=== PATIENT | male | born 1965 | race African-American/Black ===

== ENCOUNTER 2018-10-09 15:21 | Inpatient (IN) | payer OTHER ==
[2018-10-09] MEDS ORDERED: ASPIRIN 81 MG TABLET, CHEWABLE PO ONE (17:37)
--- NOTE | 2018-10-09 17:47 | ER Document Report ---
ED Medical Screen (RME) - General Chief Complaint: Chest Pain Stated Complaint: CHEST PAIN, SHORTNESS OF BREATH Time Seen by Provider: 10/09/18 17:37 Mode of Arrival: Ambulatory Information source: Patient Notes: Patient is a 53-year-old male with past medical history of hypertension and myocardial infarction x1 who presents with chest pain onset 1 hour prior to arrival. He states he has associated shortness of breath denies any radiation of the pain, denies any nausea or vomiting. Patient denies any history of atrial fibrillation. EKG at check-in shows atrial fibrillation. Upgraded to JOCELIN 2 and called charge nurse for bed. Exam: Heart sounds irregular. Lungs sounds clear to auscultation bilaterally. I have greeted and performed a rapid initial assessment of this patient. A comprehensive ED assessment and evaluation of the patient, analysis of test results and completion of the medical decision making process will be conducted by additional ED providers. Dictation of this chart was performed using voice recognition software; therefore, there may be some unintended grammatical errors. TRAVEL OUTSIDE OF THE [place] IN LAST 30 DAYS: No - Related Data Allergies/Adverse Reactions: No Known Allergies Allergy (Verified 12/01/12 13:50) Past Medical History - Past Medical History Cardiac Medical History: Reports: Hx Coronary Artery Disease, Hx Heart Attack - Immunizations Hx Diphtheria, Pertussis, Tetanus Vaccination: Yes Physical Exam - Vital signs Vitals: Temp Pulse Resp BP Pulse Ox 98.3 F 60 22 H 148/96 H 96 10/09/18 15:34 10/09/18 15:34 10/09/18 15:34 10/09/18 15:34 10/09/18 15:34 Course - Vital Signs Vital signs: Temp Pulse Resp BP Pulse Ox 98.3 F 60 22 H 148/96 H 96 10/09/18 15:34 10/09/18 15:34 10/09/18 15:34 10/09/18 15:34 10/09/18 15:34 Doctor's Discharge - Discharge Referrals: VIRGEN FERRER MD [Primary Care Provider] - Follow up as needed
[2018-10-09 18:08] LABS: ABSOLUTE EOSINOPHILS # (AUTO) 0.1 10^3/uL (0.0-0.6); ABSOLUTE LYMPHOCYTES (AUTO) 1.9 10^3/uL (0.5-4.7); ABSOLUTE MONOCYTES (AUTO) 0.7 10^3/uL (0.1-1.4); BASOPHILS % (AUTO) 0.5 % (0-2); EOSINOPHILS % (AUTO) 2.6 % (0-6); LYMPHOCYTES % (AUTO) 32.5 % (13-45); MEAN CORPUSCULAR HEMOGLOBIN 29.9 pg (27.0-33.4); MEAN CORPUSCULAR HGB CONC 33.4 g/dL (32.0-36.0); MEAN CORPUSCULAR VOLUME 90 fl (80-97); MONOCYTES % (AUTO) 12.4 % (3-13); PLATELET COUNT 227 10^3/uL (150-450); RED BLOOD COUNT 5.36 10^6/uL (4.35-5.55); RED CELL DISTRIBUTION WIDTH 14.5 % (11.5-14.0); TOTAL CELLS COUNTED % (AUTO) 100 %; WHITE BLOOD COUNT 5.7 10^3/uL (4.0-10.5)
--- NOTE | 2018-10-09 18:12 | RADIOLOGY REPORT (SQ) ---
EXAM DESCRIPTION: CHEST SINGLE VIEW COMPLETED DATE/TIME: 10/09/2018 5:59 pm REASON FOR STUDY: chest pain COMPARISON: November 2012 EXAM PARAMETERS: NUMBER OF VIEWS: One view. TECHNIQUE: Single frontal radiographic view of the chest acquired. RADIATION DOSE: NA LIMITATIONS: None. FINDINGS: LUNGS AND PLEURA: No opacities, masses or pneumothorax. No pleural effusion. MEDIASTINUM AND HILAR STRUCTURES: No masses. Contour normal. HEART AND VASCULAR STRUCTURES: The configuration of the heart mediastinal structures is unchanged. BONES: No acute findings. HARDWARE: None in the chest. OTHER: No other significant finding. IMPRESSION: NO ACUTE RADIOGRAPHIC FINDING IN THE CHEST. TECHNICAL DOCUMENTATION: JOB ID: [id number] [employer]- All Rights Reserved Reading location - IP/workstation name: [email or web address]
[2018-10-09 18:19] LABS: ALANINE AMINOTRANSFERASE 49 U/L (21-72); ALBUMIN 4.5 g/dL (3.5-5.0); ALKALINE PHOSPHATASE 93 U/L (38-126); ANION GAP 8 (5-19); ASPARTATE AMINO TRANSFERASE 32 U/L (17-59); BILIRUBIN,DIRECT 0.3 mg/dL (0.0-0.4); BILIRUBIN,TOTAL 0.5 mg/dL (0.2-1.3); BLOOD UREA NITROGEN 14 mg/dL (7-20); CALCIUM 9.8 mg/dL (8.4-10.2); CARBON DIOXIDE 30 mmol/L (22-30); CHLORIDE 108 mmol/L (98-107); CREATINE KINASE 760 U/L (55-170); GLUCOSE 86 mg/dL (75-110); POTASSIUM 4.3 mmol/L (3.6-5.0); SODIUM 146.3 mmol/L (137-145); TOTAL PROTEIN 7.2 g/dL (6.3-8.2)
[2018-10-09] MEDS ORDERED: DILTIAZEM HCL/D5W 125 MG/125 ML RTUINJ IV PRN ×2 (18:29→20:22)
[2018-10-09] MEDS ORDERED: DILTIAZEM HCL INJ 25 MG/5 ML VIAL IV ONE (18:29)
[2018-10-09 18:31] LABS: CREATINE KINASE MB 5.03 ng/mL (<4.55)
--- NOTE | 2018-10-09 18:31 | ER Document Report ---
ED Cardiac - General Chief Complaint: Chest Pain Stated Complaint: CHEST PAIN, SHORTNESS OF BREATH Time Seen by Provider: 10/09/18 17:37 Mode of Arrival: Ambulatory Notes: 53-year-old male to the emergency department chief complaint of chest pain. Patient states that symptoms began earlier today. [place] palpitations and squeezing feeling in his chest. Has had this before. Has never been told that he has atrial fibrillation. Present here in the emergency department. Initial EKG showed atrial fibrillation. Patient still having palpitations and tightness in his chest at this time. Patient incidentally does have a prior history of heart attack. Had an Angiogram done while he was in [place] and was told he was having a heart attack. Does not have a stent. Does not smoke. Does not drink. Takes his blood pressure medication regularly. TRAVEL OUTSIDE OF THE [place] IN LAST 30 DAYS: No - HPI Patient complains to provider of: Chest pain, Chest tightness, Palpitations, Shortness of breath Was the onset of pain: Sudden Chest pain location: Substernal Quality of pain: Constant Severity now: Moderate Severity at worst: Moderate Pain level currently: 2 Cardiac risk factors: Hypertension, Hx [place] Positive cardiac history: Yes Associated symptoms: None - Related Data Allergies/Adverse Reactions: No Known Allergies Allergy (Verified 12/01/12 13:50) Past Medical History - General Information source: Patient - Social History Smoking Status: Never Smoker Frequency of alcohol use: Daily beers Drug Abuse: None Lives with: Family Family History: Hypertension Patient has suicidal ideation: No Patient has homicidal ideation: No - Past Medical History Cardiac Medical History: Reports: Hx Coronary Artery Disease, Hx Heart Attack, Hx Hypercholesterolemia, Hx Hypertension Renal/ Medical History: Denies: Hx Peritoneal Dialysis Past Surgical History: Reports: Hx Appendectomy, Hx Cardiac Catheterization - 2004 - Immunizations Hx Diphtheria, Pertussis, Tetanus Vaccination: Yes Review of Systems - Review of Systems Notes: Constitutional: denies: Chills, Diaphoresis, Fever, Malaise, Weakness EENT: denies: Eye discharge, Blurred vision, Tearing, Double vision, Nose congestion, Nose discharge, Throat swelling, Mouth pain Cardiovascular: Patient complaining of tightness in the chest, palpitations and mild shortness of breath. Respiratory: denies: Cough, Hurts to breathe, Wheezing,. Positive for mild shortness of breath Gastrointestinal: denies: Abdominal pain, Diarrhea, Nausea, Vomiting, Black stools, bright red blood in stool Genitourinary: denies: Burning, Dysuria, Discharge, Frequency, Flank pain, Hematuria Musculoskeletal: denies: Joint pain, Joint swelling, Muscle pain, Muscle stiffness, back pain Hematologic/Lymphatic: denies: Anemia, Easy bleeding, Easy bruising, Blood clots Neurological/Psychological: denies: Confusion, Dementia, Depression, Loss of consciousness Skin: No lesions, no masses, no skin breakdown, no abscesses Physical Exam - Vital signs Vitals: Temp Pulse Resp BP Pulse Ox 98.3 F 60 22 H 148/96 H 96 10/09/18 15:34 10/09/18 15:34 10/09/18 15:34 10/09/18 15:34 10/09/18 15:34 Interpretation: Tachycardic - General General appearance: Appears well, Alert - HEENT Head: Normocephalic, Atraumatic Eyes: Normal Pupils: PERRL - Respiratory Respiratory status: No respiratory distress Chest status: Nontender Breath sounds: Normal Chest palpation: Normal - Cardiovascular Rhythm: Irregularly irregular, Tachycardia Heart sounds: Normal auscultation Murmur: No - Abdominal Inspection: Normal Distension: No distension Bowel sounds: Normal Tenderness: Nontender Organomegaly: No organomegaly - Back Back: Normal, Nontender - Extremities General upper extremity: Normal inspection, Nontender, Normal color, Normal ROM , Normal temperature General lower extremity: Normal inspection, Nontender, Normal color, Normal ROM , Normal temperature, Normal weight bearing. No: Benitez's sign - Neurological Neuro grossly intact: Yes Cognition: Normal Orientation: AAOx4 Casimiro Coma Scale Eye Opening: Spontaneous Casimiro Coma Scale Verbal: Oriented Casimiro Coma Scale Motor: Obeys Commands Casimiro Coma Scale Total: 15 Speech: Normal Motor strength normal: LUE, RUE, LLE, RLE Sensory: Normal - Psychological Associated symptoms: Normal affect, Normal mood - Skin Skin Temperature: Warm Skin Moisture: Dry Skin Color: Normal Course - Re-evaluation Re-evalutation: 10/09/18 19:49 Patient has atrial fibrillation with rapid ventricular response. Diltiazem bolus and drip started. Labs are fairly unremarkable. This is new onset A. fib with RVR. Will need to be admitted. Consulted with hospitalist. Will admit at this time. 10/09/18 19:50 Laboratory 10/09/18 10/09/18 10/09/18 17:50 17:50 17:50 WBC 5.7 RBC 5.36 Hgb 16.0 Hct 48.0 MCV 90 MCH 29.9 MCHC 33.4 RDW 14.5 H Plt Count 227 Seg Neutrophils % 52.0 Lymphocytes % 32.5 Monocytes % 12.4 Eosinophils % 2.6 Basophils % 0.5 Absolute Neutrophils 3.0 Absolute Lymphocytes 1.9 Absolute Monocytes 0.7 Absolute Eosinophils 0.1 Absolute Basophils 0.0 PT INR APTT Sodium 146.3 H Potassium 4.3 Chloride 108 H Carbon Dioxide 30 Anion Gap 8 BUN 14 Creatinine 1.07 Est GFR ( Amer) > 60 Est GFR (Non-Af Amer) > 60 Glucose 86 Calcium 9.8 Total Bilirubin 0.5 Direct Bilirubin 0.3 Neonat Total Bilirubin Not Reportable Neonat Direct Bilirubin Not Reportable Neonat Indirect Bili Not Reportable AST 32 ALT 49 Alkaline Phosphatase 93 Creatine Kinase 760 H CK-MB (CK-2) 5.03 H Troponin I < 0.012 Total Protein 7.2 Albumin 4.5 10/09/18 17:50 WBC RBC Hgb Hct MCV MCH MCHC RDW Plt Count Seg Neutrophils % Lymphocytes % Monocytes % Eosinophils % Basophils % Absolute Neutrophils Absolute Lymphocytes Absolute Monocytes Absolute Eosinophils Absolute Basophils PT 12.5 INR 0.89 APTT 28.2 Sodium Potassium Chloride Carbon Dioxide Anion Gap BUN Creatinine Est GFR ( Amer) Est GFR (Non-Af Amer) Glucose Calcium Total Bilirubin Direct Bilirubin Neonat Total Bilirubin Neonat Direct Bilirubin Neonat Indirect Bili AST ALT Alkaline Phosphatase Creatine Kinase CK-MB (CK-2) Troponin I Total Protein Albumin Chest X-Ray 10/09/18 17:38 IMPRESSION: NO ACUTE RADIOGRAPHIC FINDING IN THE CHEST. - Vital Signs Vital signs: Temp Pulse Resp BP Pulse Ox 98.3 F 60 24 H 129/76 H 97 10/09/18 15:34 10/09/18 15:34 10/09/18 19:02 10/09/18 19:02 10/09/18 19:02 - Laboratory Result Diagrams: 10/09/18 17:50 10/09/18 17:50 Laboratory results interpreted by me: 10/09/18 10/09/18 10/09/18 17:50 17:50 17:50 RDW 14.5 H Sodium 146.3 H Chloride 108 H Creatine Kinase 760 H CK-MB (CK-2) 5.03 H Critical Care Note - Critical Care Note Total time excluding time spent on procedures (mins): 35 Comments: Tachycardia, A. fib with RVR, medication administration for control of heart rate. Discharge - Discharge Clinical Impression: Atrial fibrillation with RVR Condition: Good Disposition: ADMITTED INPATIENT Admitting Provider: [facility] Admitted: Telemetry
[2018-10-09 18:35] LABS: TROPONIN I < 0.012 ng/mL
--- NOTE | 2018-10-09 18:53 | EKG REPORT ---
SEVERITY:- ABNORMAL ECG - ATRIAL FIBRILLATION, V-RATE 77-167 VENTRICULAR TRIGEMINY VS SUPRVENTRICULAR ABBERENCY LVH WITH SECONDARY REPOLARIZATION ABNORMALITY INFERIOR INFARCT, OLD : Confirmed by: Syed Tenorio MD 09-Oct-2018 18:52:55
[2018-10-09 18:57] LABS: INTERNATIONAL RATION (INR) 0.89; PROTHROMBIN TIME 12.5 SEC (11.4-15.4)
[2018-10-09 18:58] LABS: PARTIAL THROMBOPLASTIN TIME 28.2 SEC (23.5-35.8)
[2018-10-09] MEDS ORDERED: ONDANSETRON 4 MG TAB.RAPDIS PO PRN (20:12)
[2018-10-09] MEDS ORDERED: MAG HYDROX/AL HYDROX/SIMETH SUSP 30 ML UDCUP PO PRN (20:12)
[2018-10-09] MEDS ORDERED: MAGNESIUM HYDROXIDE SUSP 30 ML UDCUP PO PRN (20:12)
[2018-10-09] MEDS ORDERED: ONDANSETRON HCL INJ/PF 4 MG/2 ML SDV IV PRN (20:12)
[2018-10-09] MEDS ORDERED: MORPHINE SULFATE 10 MG/ML INJ IV PRN ×3 (20:22)
[2018-10-09] MEDS ORDERED: ACETAMINOPHEN 325 MG TABLET PO PRN (20:22)
[2018-10-09] MEDS ORDERED: ACETAMINOPHEN 650 MG SUPP.RECT PR PRN (20:22)
--- NOTE | 2018-10-09 20:46 | PDOC H&P ---
History of Present Illness Admission Date/PCP: 10/09/18 19:36 RICHARD LANCASTER MD Patient complains of: Chest pain with palpitations History of Present Illness: JESSICA MCDONALD SR is a 53 year old male who presented to the emergency room with the sudden onset of moderately severe, nonradiating, substernal squeezing chest pain at 1:30 PM on the day of admission. He admits that the chest pain has been present since its onset and has remained essentially unchanged. He further admits similar prior episodes of chest pain which usually pass after a few minutes without intervention. He also admits similar prior chest pain when he had a myocardial infarction several years ago. The chest pain was accompanied by a fluttering sensation in his chest which he had also noted on several prior occasions when he had pain. The fluttering sensation has been somewhat variable in intensity since onset. When it becomes more intense he has a sense of on the ease and general malaise which improves when the intensity of the fluttering decreases. Because the symptoms were not resolving he presented to the emergency room for further evaluation. In the ER he was found to have atrial fibrillation with a rapid ventricular response and negative cardiac enzymes as well as a EKG negative for changes consistent with myocardial ischemia or injury. He was initially treated with a diltiazem bolus injection followed by an intravenous infusion which controlled his heart rate and improved his sense of well-being. He was subsequently admitted to the [facility] for further evaluation and treatment. Past Medical History Cardiac Medical History: Reports: Coronary Artery Disease, Myocardial Infarction , Hyperlipidema, Hypertension Denies: Atrial Fibrillation, DVT, Pulmonary Embolism Pulmonary Medical History: Denies: Asthma, Chronic Obstructive Pulmonary Disease (COPD) EENT Medical History: Reports: None Neurological Medical History: Denies: Hemorrhagic CVA, Ischemic CVA, Seizures Endocrine Medical History: Reports: Obesity Denies: Diabetes Mellitus Type 1, Diabetes Mellitus Type 2, Hyperthyroidism, Hypothyroidism Renal/ Medical History: Denies: Chronic Kidney Disease, Nephrolithiasis Malignancy Medical History: Reports: None GI Medical History: Denies: Cirrhosis, Hepatitis Musculoskeltal Medical History: Reports: Other - Grade 3 ankle sprain on the right with chronic debility Denies: Arthritis, Gout Skin Medical History: Denies: Eczema, Psoriasis Psychiatric Medical History: Denies: Alcohol Dependency, Substance Abuse, Tobacco Dependency Past Surgical History Past Surgical History: Reports: Appendectomy, Cardiac Catheterization - 2004, Orthopedic Surgery - Grade 3 ankle sprain on the right with chronic debility. Denies: Coronary Stent Social History Information Source: Patient Lives with: Family Smoking Status: Never Smoker Frequency of Alcohol Use: Social Hx Recreational Drug Use: No Drugs: None Hx Prescription Drug Abuse: No - Advance Directive Resuscitation Status: Full Code Surrogate healthcare decision maker:: Spouse Family History Family History: Hypertension Parental Family History Reviewed: Yes Children Family History Reviewed: No Sibling(s) Family History Reviewed.: Yes Medication/Allergy Home Medications: Amlodipine Besylate/Benazepril [Lotrel 10-20 Mg Capsule] 1 each PO DAILY Losartan Potassium [Cozaar 50 Mg Tablet] 50 mg PO DAILY 12/01/12 Metoprolol Succinate [Toprol XL 25 mg Tablet] 25 mg PO DAILY 12/01/12 Sildenafil Citrate [Viagra] 25 mg PO PRN PRN 12/01/12 Atorvastatin Calcium [Lipitor 20 mg Tablet] 20 mg PO QHS 10/09/18 Allergies/Adverse Reactions: No Known Allergies Allergy (Verified 12/01/12 13:50) Review of Systems Constitutional: ABSENT: chills, fever(s) Eyes: ABSENT: visual disturbances, other - Ocular pain Ears: ABSENT: hearing changes, other - Ear pain Nose, Mouth, and Throat: ABSENT: mouth pain, sore throat Cardiovascular: PRESENT: as per HPI, chest pain, palpitations. ABSENT: dyspnea on exertion, edema, orthropnea Gastrointestinal: ABSENT: abdominal pain, constipation, diarrhea, nausea, vomiting Genitourinary: ABSENT: dysuria, hematuria Musculoskeletal: ABSENT: deformity, joint swelling Integumentary: ABSENT: pruritus, [place] [id number] Neurological: ABSENT: confusion, convulsions, memory loss, syncope Psychiatric: ABSENT: anxiety, depression Endocrine: ABSENT: cold intolerance, heat intolerance Hematologic/Lymphatic: ABSENT: easy bleeding, easy bruising Physical Exam Vital Signs: Temp Pulse Resp BP Pulse Ox 98.3 F 60 24 H 129/76 H 97 10/09/18 15:34 10/09/18 15:34 10/09/18 19:02 10/09/18 19:02 10/09/18 19:02 General appearance: PRESENT: no acute distress, cooperative, obese Head exam: PRESENT: atraumatic, normocephalic Eye exam: PRESENT: EOMI. ABSENT: scleral icterus Ear exam: PRESENT: normal external ear exam. ABSENT: bleeding, drainage Mouth exam: PRESENT: dry mucosa, neck supple Neck exam: ABSENT: JVD, thyromegaly, tracheal deviation Respiratory exam: PRESENT: clear to auscultation berry, symmetrical, unlabored Cardiovascular exam: PRESENT: irregular rhythm - Irregularly irregular rate and rhythm, tachycardia - 112. ABSENT: clicks, diastolic murmur, gallop, rubs, systolic murmur Pulses: PRESENT: normal radial pulses, normal dorsalis pedis pul GI/Abdominal exam: PRESENT: normal bowel sounds, soft. ABSENT: tenderness Rectal exam: PRESENT: deferred Extremities exam: PRESENT: +1 edema - Right lower extremity status post grade 3 ankle sprain many years ago. ABSENT: joint swelling Musculoskeletal exam: ABSENT: dislocation, tenderness Neurological exam: PRESENT: alert, oriented to person, oriented to place, oriented to time, oriented to situation, CN II-XII grossly intact. ABSENT: motor sensory deficit Psychiatric exam: PRESENT: appropriate affect, normal mood Skin exam: PRESENT: dry, intact, warm. ABSENT: jaundice, rash, urticaria Results Impressions: Chest X-Ray 10/09/18 17:38 IMPRESSION: NO ACUTE RADIOGRAPHIC FINDING IN THE CHEST. Assessment & Plan - Diagnosis (1) Atrial fibrillation with RVR Is this a current diagnosis for this admission?: Yes Plan: Patient will be converted from intravenous diltiazem to oral diltiazem. Serial cardiac enzymes and EKGs will be performed to rule out myocardial injury or ischemia. Further evaluation treatment will be determined pending results of initial evaluation and response to initial therapeutic interventions. (2) CAD (coronary artery disease), ione coronary artery Qualifiers: [place] vs. transplanted heart: ione heart Associated angina: with stable angina Qualified Code(s): I25.118 - Atherosclerotic heart disease of ione coronary artery with other forms of angina pectoris Is this a current diagnosis for this admission?: Yes Plan: Patient will be continued on his current medications during his hospital course. Further evaluation of his coronary artery status may be indicated either during this course if he continues to have chest pain or in the very near future as an outpatient. If patient has significant chest pain requiring analgesia he will receive morphine sulfate administered intravenously on a sliding scale basis for pain control. (3) HTN (hypertension) Qualifiers: Hypertension type: essential hypertension Qualified Code(s): I10 - Essential (primary) hypertension Is this a current diagnosis for this admission?: Yes Plan: Patient will be continued on his current antihypertensive regiment and the efficacy of this therapy will be evaluated with serial vital sign measurements. (4) Obesity (BMI 30.0-34.9) Is this a current diagnosis for this admission?: Yes Plan: A dietary consultation will be obtained to assist the patient in lifestyle changes that could assist him in weight loss and general improved health. - Time Time Spent: 50 to 70 Minutes Critical Time spent with patient: Less than 15 minutes Medications reviewed and adjusted accordingly: Yes Anticipated discharge: Home - Inpatient Certification Based on my medical assessment, after consideration of the patient's comorbidities, presenting symptoms, or acuity I expect that the services needed warrant INPATIENT care.: Yes I certify that my determination is in accordance with my understanding of Medicare's requirements for reasonable and necessary INPATIENT services [42 CFR 412.3e].: Yes Medical Necessity: Need Close Monitoring Due to Risk of Patient Decompensation, Need For Continuous Telemetry Monitoring, Risk of Complication if Not Cared For in Hospital
[2018-10-09] MEDS: HEPARIN SOD (PORCINE) 5,000 UNIT/ML 1 ML SYRINGE SUBCUT SCH (21:47)
[2018-10-09] MEDS: FAMOTIDINE 20 MG TABLET PO SCH (21:47)
[2018-10-09 21:50] LABS: CREATINE KINASE MB 4.14 ng/mL (<4.55)
[2018-10-09 21:54] LABS: TROPONIN I < 0.012 ng/mL
[2018-10-09] MEDS ORDERED: DILTIAZEM HCL 60 MG TABLET PO ONE (23:00)
[2018-10-09] MEDS ORDERED: ATORVASTATIN CALCIUM 40 MG TABLET PO ONE (23:00)
[2018-10-10 03:16] LABS: ABSOLUTE EOSINOPHILS # (AUTO) 0.2 10^3/uL (0.0-0.6); ABSOLUTE LYMPHOCYTES (AUTO) 2.2 10^3/uL (0.5-4.7); ABSOLUTE MONOCYTES (AUTO) 0.6 10^3/uL (0.1-1.4); ABSOLUTE NEUT (AUTO) 2.4 10^3/uL (1.7-8.2); BASOPHILS % (AUTO) 0.6 % (0-2); HEMATOCRIT 45.6 % (37.9-51.0); HEMOGLOBIN 15.3 g/dL (13.5-17.0); LYMPHOCYTES % (AUTO) 40.7 % (13-45); MEAN CORPUSCULAR HEMOGLOBIN 29.9 pg (27.0-33.4); MEAN CORPUSCULAR HGB CONC 33.6 g/dL (32.0-36.0); MEAN CORPUSCULAR VOLUME 89 fl (80-97); MONOCYTES % (AUTO) 11.2 % (3-13); PLATELET COUNT 205 10^3/uL (150-450); RED BLOOD COUNT 5.12 10^6/uL (4.35-5.55); RED CELL DISTRIBUTION WIDTH 14.8 % (11.5-14.0); SEGMENTED NEUTROPHILS % (AUTO) 44.5 % (42-78); TOTAL CELLS COUNTED % (AUTO) 100 %; WHITE BLOOD COUNT 5.4 10^3/uL (4.0-10.5)
[2018-10-10 03:33] LABS: ANION GAP 8 (5-19); BLOOD UREA NITROGEN 14 mg/dL (7-20); CALCIUM 9.1 mg/dL (8.4-10.2); CARBON DIOXIDE 22 mmol/L (22-30); CHLORIDE 112 mmol/L (98-107); CHOLESTEROL 226.56 mg/dL (0-200); CREATINE KINASE 604 U/L (55-170); GLUCOSE 112 mg/dL (75-110); POTASSIUM 4.1 mmol/L (3.6-5.0); SODIUM 141.5 mmol/L (137-145); TRIGLYCERIDES 236 mg/dL (<150)
[2018-10-10 03:42] LABS: CREATINE KINASE MB 3.47 ng/mL (<4.55); NT PRO BNP 243 pg/mL (5-900)
[2018-10-10 03:43] LABS: DIRECT LDL 168 mg/dL (<100)
[2018-10-10 03:48] LABS: FREE T3 4.51 pg/mL (2.77-5.27); FREE T4 (FREE THYROXINE) 1.08 ng/dL (0.78-2.19); TROPONIN I < 0.012 ng/mL; VLDL CHOLESTEROL 47.2 mg/dL (10-31)
[2018-10-10 04:02] LABS: THYROID STIMULATING HORMONE 2.4 uIU/mL (0.47-4.68)
[2018-10-10] MEDS: HEPARIN SOD (PORCINE) 5,000 UNIT/ML 1 ML SYRINGE SUBCUT SCH ×3 (06:18→22:16)
[2018-10-10] MEDS ORDERED: METOPROLOL SUCCINATE 25 MG TAB.SR.24H PO SCH (10:00)
[2018-10-10] MEDS ORDERED: SIMVASTATIN 40 MG TABLET PO SCH (10:00)
[2018-10-10] MEDS ORDERED: METOPROLOL SUCCINATE 50 MG TAB.SR.24H PO SCH (10:00)
[2018-10-10] MEDS: ASPIRIN 325 MG TABLET PO SCH (10:02)
[2018-10-10] MEDS: LOSARTAN POTASSIUM 50 MG TABLET PO SCH (10:02)
[2018-10-10] MEDS: DOCUSATE SODIUM 100 MG CAPSULE PO SCH ×3 (10:03→17:55)
[2018-10-10] MEDS: DILTIAZEM HCL 240 MG CAPSULE.CR PO SCH (10:03)
[2018-10-10] MEDS: FAMOTIDINE 20 MG TABLET PO SCH ×2 (10:03→22:16)
[2018-10-10 11:42] LABS: CREATINE KINASE MB 3.36 ng/mL (<4.55)
[2018-10-10 11:46] LABS: TROPONIN I < 0.012 ng/mL
--- NOTE | 2018-10-10 19:47 | PDOC PROGRESS REPORT ---
Subjective Progress Note for:: 10/10/18 Subjective:: This is 53 years old black male patient admitted for A. fib with RVR. Patient has history of hypertension and obesity. He has been managed with Cardizem drip. Currently the drip is discontinued and he is switched to p.o. Cardizem. Reason For Visit: CHEST TIGHTNESS WITH PALPITATIONS Physical Exam Vital Signs: Temp Pulse Resp BP Pulse Ox 98.3 F 62 16 114/77 97 10/10/18 17:13 10/10/18 17:13 10/10/18 17:13 10/10/18 17:13 10/10/18 17:13 Intake & Output 10/09/18 10/10/18 10/11/18 06:59 06:59 06:59 Intake Total 28 Balance 28 Weight 122.4 kg General appearance: PRESENT: no acute distress, well-developed, well-nourished Head exam: PRESENT: atraumatic, normocephalic Eye exam: PRESENT: conjunctiva pink, EOMI, PERRLA. ABSENT: scleral icterus Ear exam: PRESENT: normal external ear exam Mouth exam: PRESENT: moist, tongue midline Neck exam: ABSENT: carotid bruit, JVD, lymphadenopathy, thyromegaly Respiratory exam: PRESENT: clear to auscultation berry. ABSENT: rales, rhonchi, wheezes Cardiovascular exam: PRESENT: RRR. ABSENT: diastolic murmur, rubs, systolic murmur Pulses: PRESENT: normal dorsalis pedis pul Vascular exam: PRESENT: normal capillary refill GI/Abdominal exam: PRESENT: normal bowel sounds, soft. ABSENT: distended, guarding, mass, organolmegaly, rebound, tenderness Rectal exam: PRESENT: deferred Extremities exam: PRESENT: full ROM. ABSENT: calf tenderness, clubbing, pedal edema Neurological exam: PRESENT: alert, awake, oriented to person, oriented to place , oriented to time, oriented to situation, CN II-XII grossly intact. ABSENT: motor sensory deficit Psychiatric exam: PRESENT: appropriate affect, normal mood. ABSENT: homicidal ideation, suicidal ideation Skin exam: PRESENT: dry, intact, warm. ABSENT: cyanosis, rash Results Laboratory Results: 10/10/18 03:08 10/10/18 03:08 10/10/18 10/10/18 10/10/18 03:08 03:08 03:08 WBC 5.4 RBC 5.12 Hgb 15.3 Hct 45.6 MCV 89 MCH 29.9 MCHC 33.6 RDW 14.8 H Plt Count 205 Seg Neutrophils % 44.5 Lymphocytes % 40.7 Monocytes % 11.2 Eosinophils % 3.0 Basophils % 0.6 Absolute Neutrophils 2.4 Absolute Lymphocytes 2.2 Absolute Monocytes 0.6 Absolute Eosinophils 0.2 Absolute Basophils 0.0 Sodium 141.5 Potassium 4.1 Chloride 112 H Carbon Dioxide 22 Anion Gap 8 BUN 14 Creatinine 0.87 Est GFR ( Amer) > 60 Est GFR (Non-Af Amer) > 60 Glucose 112 H Calcium 9.1 Magnesium 2.2 Triglycerides 236 H Cholesterol 226.56 H LDL Cholesterol Direct 168 H VLDL Cholesterol 47.2 H HDL Cholesterol 42 TSH 2.40 Free T4 1.08 Free T3 pg/mL 4.51 10/09/18 10/09/18 10/10/18 21:13 21:13 03:08 Creatine Kinase 667 H CK-MB (CK-2) 4.14 3.47 Troponin I < 0.012 < 0.012 NT-Pro-B Natriuret Pep 243 10/10/18 10/10/18 10/10/18 03:08 10:48 10:48 Creatine Kinase 604 H 525 H CK-MB (CK-2) 3.36 Troponin I < 0.012 NT-Pro-B Natriuret Pep Impressions: Chest X-Ray 10/09/18 17:38 IMPRESSION: NO ACUTE RADIOGRAPHIC FINDING IN THE CHEST. Assessment & Plan - Diagnosis (1) Atrial fibrillation with RVR Is this a current diagnosis for this admission?: Yes Plan: Patient now reverted to sinus rhythm (2) HTN (hypertension) Qualifiers: Hypertension type: essential hypertension Qualified Code(s): I10 - Essential (primary) hypertension Is this a current diagnosis for this admission?: Yes Plan: Continue home medication (3) Obesity (BMI 30.0-34.9) Is this a current diagnosis for this admission?: Yes Plan: Patient advised to do lifestyle modification.
[2018-10-10] MEDS ORDERED: ATORVASTATIN CALCIUM 40 MG TABLET PO SCH (22:00)
[2018-10-11 03:24] VITALS: BP 125/69
[2018-10-11 06:53] LABS: ABSOLUTE EOSINOPHILS # (AUTO) 0.2 10^3/uL (0.0-0.6); ABSOLUTE LYMPHOCYTES (AUTO) 1.8 10^3/uL (0.5-4.7); ABSOLUTE MONOCYTES (AUTO) 0.6 10^3/uL (0.1-1.4); ABSOLUTE NEUT (AUTO) 2.7 10^3/uL (1.7-8.2); BASOPHILS % (AUTO) 0.5 % (0-2); EOSINOPHILS % (AUTO) 3.1 % (0-6); HEMATOCRIT 45.9 % (37.9-51.0); HEMOGLOBIN 15.3 g/dL (13.5-17.0); LYMPHOCYTES % (AUTO) 34.7 % (13-45); MEAN CORPUSCULAR HEMOGLOBIN 29.9 pg (27.0-33.4); MEAN CORPUSCULAR HGB CONC 33.4 g/dL (32.0-36.0); MEAN CORPUSCULAR VOLUME 90 fl (80-97); MONOCYTES % (AUTO) 11.5 % (3-13); PLATELET COUNT 198 10^3/uL (150-450); RED BLOOD COUNT 5.13 10^6/uL (4.35-5.55); RED CELL DISTRIBUTION WIDTH 14.7 % (11.5-14.0); SEGMENTED NEUTROPHILS % (AUTO) 50.2 % (42-78); TOTAL CELLS COUNTED % (AUTO) 100 %; WHITE BLOOD COUNT 5.3 10^3/uL (4.0-10.5)
[2018-10-11] MEDS: HEPARIN SOD (PORCINE) 5,000 UNIT/ML 1 ML SYRINGE SUBCUT SCH (06:57)
[2018-10-11 07:06] LABS: ANION GAP 7 (5-19)
[2018-10-11 07:12] LABS: BLOOD UREA NITROGEN 15 mg/dL (7-20); CALCIUM 9.4 mg/dL (8.4-10.2); GLUCOSE 111 mg/dL (75-110)
[2018-10-11 07:13] LABS: CARBON DIOXIDE 24 mmol/L (22-30); CHLORIDE 109 mmol/L (98-107); POTASSIUM 4.1 mmol/L (3.6-5.0); SODIUM 140.1 mmol/L (137-145)
[2018-10-11] MEDS: DILTIAZEM HCL 240 MG CAPSULE.CR PO SCH (10:41)
[2018-10-11] MEDS: ASPIRIN 325 MG TABLET PO SCH (10:41)
[2018-10-11] MEDS: DOCUSATE SODIUM 100 MG CAPSULE PO SCH (10:42)
[2018-10-11] MEDS: FAMOTIDINE 20 MG TABLET PO SCH (10:42)
[2018-10-11] MEDS: LOSARTAN POTASSIUM 50 MG TABLET PO SCH (10:42)
--- NOTE | 2018-10-11 12:00 | PDOC DISCHARGE SUMMARY ---
General - Admit/Disc Date/PCP Admission Date/Primary Care Provider: 10/09/18 19:36 RICHARD LANCASTER MD Discharge Date: 10/11/18 - Discharge Diagnosis (1) Atrial fibrillation with RVR Is this a current diagnosis for this admission?: Yes (2) HTN (hypertension) Is this a current diagnosis for this admission?: Yes (3) Obesity (BMI 30.0-34.9) Is this a current diagnosis for this admission?: Yes - Additional Information Resuscitation Status: Full Code Home Medications: Amlodipine Besylate/Benazepril [Lotrel 10-20 Mg Capsule] 1 each PO DAILY 12/01/12 Losartan Potassium [Cozaar 50 Mg Tablet] 50 mg PO DAILY 12/01/12 Metoprolol Succinate [Toprol XL 25 mg Tablet] 25 mg PO DAILY 12/01/12 Sildenafil Citrate [Viagra] 25 mg PO PRN PRN 12/01/12 Atorvastatin Calcium [Lipitor 20 mg Tablet] 20 mg PO QHS 10/09/18 History of Present Illness History of Present Illness: JESSICA MCDONALD is a 53 year old male who presented to the emergency room with the sudden onset of moderately severe, nonradiating, substernal squeezing chest pain at 1:30 PM on the day of admission. He admits that the chest pain has been present since its onset and has remained essentially unchanged. He further admits similar prior episodes of chest pain which usually pass after a few minutes without intervention. He also admits similar prior chest pain when he had a myocardial infarction several years ago. The chest pain was accompanied by a fluttering sensation in his chest which he had also noted on several prior occasions when he had pain. The fluttering sensation has been somewhat variable in intensity since onset. When it becomes more intense he has a sense of on the ease and general malaise which improves when the intensity of the fluttering decreases. Because the symptoms were not resolving he presented to the emergency room for further evaluation. In the ER he was found to have atrial fibrillation with a rapid ventricular response and negative cardiac enzymes as well as a EKG negative for changes consistent with myocardial ischemia or injury. He was initially treated with a diltiazem bolus injection followed by an intravenous infusion which controlled his heart rate and improved his sense of well-being. He was subsequently admitted to the [facility] for further evaluation and treatment. Hospital Course Hospital Course: This is 53 years old black male patient admitted for A. fib with RVR. Patient has history of UT in 2005, hyperlipidemia, hypertension and obesity. He has been managed with Cardizem drip which later switched to p.o. This morning his heart rate dropped to 58. Patient remained stable and chest pain-free throughout his stay.His CHAD2 score is 2. I will send him home with Cardizem extended release 120 mg p.o. daily. Physical Exam Vital Signs: Temp Pulse Resp BP Pulse Ox 98.3 F 58 L 18 125/69 98 10/11/18 07:52 10/11/18 07:52 10/11/18 07:52 10/11/18 03:23 10/11/18 07:52 Intake & Output 10/10/18 10/11/18 10/12/18 06:59 06:59 06:59 Intake Total 28 450 Output Total 600 Balance 28 -150 Weight 120.8 kg 122.1 kg General appearance: PRESENT: no acute distress, well-developed, well-nourished Head exam: PRESENT: atraumatic, normocephalic Eye exam: PRESENT: conjunctiva pink, EOMI, PERRLA. ABSENT: scleral icterus Ear exam: PRESENT: normal external ear exam Mouth exam: PRESENT: moist, tongue midline Neck exam: ABSENT: carotid bruit, JVD, lymphadenopathy, thyromegaly Respiratory exam: PRESENT: clear to auscultation berry. ABSENT: rales, rhonchi, wheezes Cardiovascular exam: PRESENT: RRR. ABSENT: diastolic murmur, rubs, systolic murmur Pulses: PRESENT: normal dorsalis pedis pul Vascular exam: PRESENT: normal capillary refill GI/Abdominal exam: PRESENT: normal bowel sounds, soft. ABSENT: distended, guarding, mass, organolmegaly, rebound, tenderness Rectal exam: PRESENT: deferred Extremities exam: PRESENT: full ROM. ABSENT: calf tenderness, clubbing, pedal edema Neurological exam: PRESENT: alert, awake, oriented to person, oriented to place, oriented to time, oriented to situation, CN II-XII grossly intact. ABSENT: motor sensory deficit Psychiatric exam: PRESENT: appropriate affect, normal mood. ABSENT: homicidal ideation, suicidal ideation Skin exam: PRESENT: dry, intact, warm. ABSENT: cyanosis, rash Results Laboratory Results: 10/11/18 04:08 10/11/18 04:08 10/11/18 10/11/18 04:08 04:08 WBC 5.3 RBC 5.13 Hgb 15.3 Hct 45.9 MCV 90 MCH 29.9 MCHC 33.4 RDW 14.7 H Plt Count 198 Seg Neutrophils % 50.2 Lymphocytes % 34.7 Monocytes % 11.5 Eosinophils % 3.1 Basophils % 0.5 Absolute Neutrophils 2.7 Absolute Lymphocytes 1.8 Absolute Monocytes 0.6 Absolute Eosinophils 0.2 Absolute Basophils 0.0 Sodium 140.1 Potassium 4.1 Chloride 109 H Carbon Dioxide 24 Anion Gap 7 BUN 15 Creatinine 0.93 Est GFR ( Amer) > 60 Est GFR (Non-Af Amer) > 60 Glucose 111 H Calcium 9.4 Magnesium 2.0 10/09/18 10/09/18 10/09/18 17:50 17:50 21:13 Creatine Kinase 760 H 667 H CK-MB (CK-2) 5.03 H Troponin I < 0.012 NT-Pro-B Natriuret Pep 10/09/18 10/10/18 10/10/18 21:13 03:08 03:08 Creatine Kinase 604 H CK-MB (CK-2) 4.14 3.47 Troponin I < 0.012 < 0.012 NT-Pro-B Natriuret Pep 243 10/10/18 10/10/18 10:48 10:48 Creatine Kinase 525 H CK-MB (CK-2) 3.36 Troponin I < 0.012 NT-Pro-B Natriuret Pep Impressions: Chest X-Ray 10/09/18 17:38 IMPRESSION: NO ACUTE RADIOGRAPHIC FINDING IN THE CHEST. Qualifiers - * PATIENT BEING DISCHARGED WITH ANY OF THE FOLLOWING DIAGNOSIS: No
== END 2018-10-11 13:30 | disposition home or self-care (01) | DRG 310 ==
LOC: ER 15:21 → EH 19:36 → 4N 10-10 16:55
PROVIDERS: ADMIT Emergency Medicine; ATTEND Emergency Medicine
DX: I48.91 Unspecified atrial fibrillation (principal); I10 Essential (primary) hypertension; E66.9 Obesity, unspecified; I25.2 Old myocardial infarction; E78.5 Hyperlipidemia, unspecified; Z90.49 Acquired absence of other specified parts of digestive tract; Z82.49 Family history of ischemic heart disease and other diseases of the circulatory system
CPT/HCPCS: 36415; 71045; 80048; 80053; 80061; 82550; 82553; 83036; 83735; 83880; 84439; 84443; 84481; 84484; 85025; 85610; 85730; 93005; 93010; 96365; 96366; 96376; 99291; J1644; J3490

== ENCOUNTER 2019-10-21 08:09 | Emergency (ER) | payer OTHER ==
--- NOTE | 2019-10-21 09:09 | RADIOLOGY REPORT (SQ) ---
EXAM DESCRIPTION: CERV SP 3 VIEW OR LESS COMPLETED DATE/TIME: 10/21/2019 8:47 am REASON FOR STUDY: bone tenderness COMPARISON: None. NUMBER OF VIEWS: Three views. TECHNIQUE: AP, lateral and odontoid radiographic images acquired of the cervical spine. LIMITATIONS: None. FINDINGS: MINERALIZATION: Normal. ALIGNMENT: Anatomic. VERTEBRAE: Vertebral bodies of normal height. DISCS: Disc space narrowing with small osteophytes at C4-5, C5-6 and C6-7. HARDWARE: None in the spine. SOFT TISSUES: No masses or calcifications. Lung apices clear. OTHER: No other significant finding. IMPRESSION: Cervical spondylosis as above. No fracture or malalignment. No suspicious bone lesion. TECHNICAL DOCUMENTATION: JOB ID: [id number] [employer]- All Rights Reserved Reading location - IP/workstation name: [email or web address]
--- NOTE | 2019-10-21 09:50 | ER Document Report ---
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 It was transiently better for 3 to 4 days and started to chronically get worse. Worse with movement. No radiation to the chest. No chest pain or shortness of breath. No swelling, weakness or numbness to the arm. ROS: See HPI All other review of systems reviewed and otherwise negative Reviewed vital signs and nursing note as charted by RN. PHYSICAL EXAM: CONSTITUTIONAL: Alert and oriented and responds appropriately to questions. Well-appearing; well-nourished HEAD: Normocephalic; atraumatic NECK: Supple without meningismus; non-tender to palpation along the midline spine without swelling, erythema, or step-offs; patient does have some left paraspinal muscular tenderness; no cervical lymphadenopathy, no masses CARD: Regular rate and rhythm; no murmurs; symmetric distal pulses RESP: Normal chest excursion without splinting or tachypnea; breath sounds clear and equal bilaterally BACK: The back appears normal and is non-tender to palpation EXT: Patient has some tenderness to the left paraspinal muscular region of the neck as well as into the anterior lateral shoulder. There is no obvious deformity, swelling, or erythema SKIN: No acute lesions noted NEURO: CN 2-12 intact; patient has 5 out of 5 strength to the left upper and lower extremity with excellent distal pulses with sensation intact to light touch PSYCH: The patient's mood and manner are appropriate. Grooming and personal hygiene are appropriate. TRAVEL OUTSIDE OF THE [place] IN LAST 30 DAYS: No - Related Data Allergies/Adverse Reactions: No Known Allergies Allergy (Verified 10/21/19 08:16) Home Medications: tizanidine. prednisone. tramadol. eliqius. rosuvastatin calcium. diltizem. metoprolol Past Medical History - Social History Smoking Status: Never Smoker Chew tobacco use (# tins/day): No Frequency of alcohol use: Heavy Drug Abuse: None Family History: Hypertension Patient has suicidal ideation: No Patient has homicidal ideation: No - Past Medical History Cardiac Medical History: Reports: Hx Coronary Artery Disease, Hx Heart Attack, Hx Hypercholesterolemia, Hx Hypertension Denies: Hx Atrial Fibrillation, Hx DVT, Hx Pulmonary Embolism Pulmonary Medical History: Denies: Hx Asthma, Hx COPD Neurological Medical History: Denies: Hx Seizures Endocrine Medical History: Denies: Hx Diabetes Mellitus Type 1, Hx Diabetes Mellitus Type 2, Hx Hyperthyroidism, Hx Hypothyroidism Renal/ Medical History: Denies: Hx Peritoneal Dialysis GI Medical History: Denies: Hx Cirrhosis, Hx Hepatitis Musculoskeletal Medical History: Denies Hx Arthritis, Denies Hx Gout Skin Medical History: Denies Hx Eczema, Denies Hx Psoriasis Infectious Medical History: Denies: Hx Hepatitis Past Surgical History: Reports: Hx Appendectomy, Hx Cardiac Catheterization - 2004, Hx Orthopedic Surgery - Grade 3 ankle sprain on the right with chronic debility.. Denies: Hx Coronary Stent - Immunizations Hx Diphtheria, Pertussis, Tetanus Vaccination: Yes Physical Exam - Vital signs Vitals: Temp Pulse Resp BP Pulse Ox 97.5 F 78 19 189/112 H 98 10/21/19 08:16 10/21/19 08:16 10/21/19 08:16 10/21/19 08:16 10/21/19 08:16 Course - Re-evaluation Re-evalutation: 10/21/19 09:48 Given the above history and physical, I do believe this is musculoskeletal in nature. I do not believe this is a cardiac equivalent pain. 10/21/19 10:53 X-rays as recorded. Sling has been provided. Orthopedic follow-up has been explained. I will provide the patient a short course of pain medications and I have explained strict return precautions. - Vital Signs Vital signs: Temp Pulse Resp BP Pulse Ox 97.5 F 78 19 189/112 H 98 10/21/19 08:16 10/21/19 08:16 10/21/19 08:16 10/21/19 08:16 10/21/19 08:16 Discharge - Discharge Clinical Impression: Left shoulder strain Qualifiers: Encounter type: initial encounter Qualified Code(s): S46.912A - Strain of unspecified muscle, fascia and tendon at shoulder and upper arm level, left arm, initial encounter Condition: Good Disposition: HOME, SELF-CARE Additional Instructions: Come back immediately with any increased pain, swelling, weakness or numbness, discoloration of the arm, weakness of the hand, or any other acute problems. Please follow-up with orthopedics as discussed. Please discontinue taking the tramadol and take the Vicodin I have prescribed as needed. Prescriptions: Hydrocodone/Acetaminophen [[place] 5-325 Tablet] 1 each PO Q6H #12 tablet Referrals: MONI BECKER DO [Primary Care Provider] - Follow up as needed KRISTAL PARTIDA MD [ACTIVE PROVISIONAL STAFF] - Follow up as needed
--- NOTE | 2019-10-21 10:43 | RADIOLOGY REPORT (SQ) ---
EXAM DESCRIPTION: SHOULDER LEFT 2 OR MORE VIEWS COMPLETED DATE/TIME: 10/21/2019 10:22 am REASON FOR STUDY: 12; pain COMPARISON: None. NUMBER OF VIEWS: Three views left shoulder LIMITATIONS: None. FINDINGS: There is no acute or significant bone, joint or soft tissue abnormality. OTHER: No other significant finding. IMPRESSION: NORMAL STUDY. TECHNICAL DOCUMENTATION: JOB ID: [id number] Reading location - IP/workstation name: [email or web address]
[2019-10-21 11:01] VITALS: BP 183/117
== END 2019-10-21 11:10 | disposition home or self-care (01) ==
LOC: ER 08:09
DX: S46.912A Strain of unspecified muscle, fascia and tendon at shoulder and upper arm level, left arm, initial encounter (principal); M54.2 Cervicalgia; X50.0XXA Overexertion from strenuous movement or load, initial encounter; Y99.0 Civilian activity done for income or pay; I25.10 Atherosclerotic heart disease of native coronary artery without angina pectoris; I25.2 Old myocardial infarction; E78.00 Pure hypercholesterolemia, unspecified; I10 Essential (primary) hypertension
CPT/HCPCS: 72040; 99283; L3650

== ENCOUNTER → 2019-10-30 | Outpatient (CLI) | payer OTHER ==
--- NOTE | 2019-10-31 19:39 | RADIOLOGY REPORT (SQ) ---
EXAM DESCRIPTION: MRI CERVICAL SPINE WITHOUT COMPLETED DATE/TIME: 10/30/2019 5:39 pm REASON FOR STUDY: (M54.12)RADICULOPATHY, CERVICAL REGION M54.12 RADICULOPATHY, CERVICAL REGION COMPARISON: None. TECHNIQUE: Sagittal and Axial imaging includes T1, T2, STIR and gradient echo sequences. LIMITATIONS: None. FINDINGS: ALIGNMENT: Normal. VERTEBRAE: Intact. BONE MARROW: Normal. No marrow replacement or reactive changes. DISCS: Decreased T2 signal. Loss of height of the C4-5, C5-6, and C6-7 disc spaces. There is loss o f height at T1-2. HARDWARE: None in the spine. CORD AND BASE OF BRAIN: Normal in size and signal intensity. SOFT TISSUES: No soft tissue masses. C1-C2: No significant spinal stenosis. C2-C3: Shallow midline disc/ osteophyte complex no central canal or foraminal stenosis. C3-C4: Shallow midline disc/ osteophyte complex with no central canal stenosis. Mild left foraminal stenosis secondary to uncovertebral osteophytes. C4-C5: Broad-based disc/osteophyte complex minimally deforms the left side of the spinal cord. There is left foraminal stenosis. C5-C6: Shallow broad-based disc/osteophyte complex minimally deforms the right side of the spinal cor d. There is mild left foraminal stenosis secondary to uncovertebral osteophytes. C6-C7: Broad-based disc/osteophyte complex contacts the spinal cord but does not deform the cord. Th ere is mild left foraminal stenosis secondary to uncovertebral osteophytes. C7-T1: No significant spinal stenosis or exit foraminal stenosis. UPPER THORACIC: There is disc narrowing at T1 to with uncovertebral osteophytes seen on the sagittal images. This area was not image in the axial plane. OTHER: No other significant finding. IMPRESSION: Extensive mild disc disease with relatively shallow disc/ osteophyte complexes at multip le levels as described. There is mild central canal stenoses at C4-5, C5-6, and C6-7. There are lef t foraminal stenoses at multiple levels secondary to uncovertebral osteophytes. Degenerative disc ch anges are seen at T1-2 as well. TECHNICAL DOCUMENTATION: JOB ID: [id number] [employer]- All Rights Reserved Reading location - IP/workstation name: [email or web address]
== END ==
LOC: RAD 16:22
PROVIDERS: ATTEND Nurse Practitioner Family
DX: M54.12 Radiculopathy, cervical region (principal)
CPT/HCPCS: 72141

== ENCOUNTER 2019-11-08 15:57 | Emergency (ER) | payer OTHER ==
--- NOTE | 2019-11-08 16:44 | ER Document Report ---
ED Medical Screen (RME) - General Chief Complaint: Headache, Worst Ever Stated Complaint: HEAD PAIN,LIGHTHEADED,NECK PAIN Time Seen by Provider: 11/08/19 16:34 Primary Care Provider: KIMBERLYN CARRASQUILLO FNP [Primary Care Provider] - Follow up as needed Mode of Arrival: Wheelchair Information source: Patient Notes: 54-year-old male with history of heart attack and neck pain presents emergency department with complaints of severe occipital headache that started today. Denies problems with his vision. Reports is the worst headache he has ever had. Reports it started hurting when he started sweating. He went to see his doctor, Dr. Bowman. His blood pressure was extremely high. Patient was sent here for evaluation. He denies fever vomiting diarrhea. 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 He thought it was sore. His neck started hurting on the . He had an MRI done denies awaiting surgery for his neck. Patient reports headache started today has never had this before and never had a headache before. he reports he takes medication for his blood pressure. I have greeted and performed a rapid initial assessment of this patient. A comprehensive ED assessment and evaluation of the patient, analysis of test results and completion of the medical decision making process will be conducted by additional ED providers. TRAVEL OUTSIDE OF THE [place] IN LAST 30 DAYS: No - Related Data Allergies/Adverse Reactions: No Known Allergies Allergy (Verified 11/08/19 16:35) Past Medical History - Social History Chew tobacco use (# tins/day): No Frequency of alcohol use: Rare Drug Abuse: None - Past Medical History Cardiac Medical History: Reports: Hx Coronary Artery Disease, Hx Heart Attack, Hx Hypercholesterolemia, Hx Hypertension Denies: Hx Atrial Fibrillation, Hx DVT, Hx Pulmonary Embolism Pulmonary Medical History: Denies: Hx Asthma, Hx COPD Neurological Medical History: Denies: Hx Seizures Endocrine Medical History: Denies: Hx Diabetes Mellitus Type 1, Hx Diabetes Mellitus Type 2, Hx Hyperthyroidism, Hx Hypothyroidism Renal/ Medical History: Denies: Hx Peritoneal Dialysis GI Medical History: Denies: Hx Cirrhosis, Hx Hepatitis Musculoskeltal Medical History: Denies Hx Arthritis, Denies Hx Gout Skin Medical History: Denies Hx Eczema, Denies Hx Psoriasis Infectious Medical History: Denies: Hx Hepatitis Past Surgical History: Reports: Hx Appendectomy, Hx Cardiac Catheterization - 2004, Hx Orthopedic Surgery - Grade 3 ankle sprain on the right with chronic debility.. Denies: Hx Coronary Stent - Immunizations Hx Diphtheria, Pertussis, Tetanus Vaccination: Yes Physical Exam - Vital signs Vitals: Temp Pulse Resp BP Pulse Ox 98.2 F 88 20 176/100 H 99 11/08/19 16:20 11/08/19 16:20 11/08/19 16:20 11/08/19 16:20 11/08/19 16:20 Course - Vital Signs Vital signs: Temp Pulse Resp BP Pulse Ox 98.2 F 88 20 176/100 H 99 11/08/19 16:20 11/08/19 16:20 11/08/19 16:20 11/08/19 16:20 11/08/19 16:20 Doctor's Discharge - Discharge Referrals: KIMBERLYN CARRASQUILLO FNP [Primary Care Provider] - Follow up as needed
--- NOTE | 2019-11-08 17:17 | RADIOLOGY REPORT (SQ) ---
EXAM DESCRIPTION: CT HEAD WITHOUT COMPLETED DATE/TIME: 11/08/2019 5:07 pm REASON FOR STUDY: LEE, worst he ever had COMPARISON: None. TECHNIQUE: Axial images acquired through the brain without intravenous contrast. Images reviewed wi th bone, brain and subdural windows. Additional sagittal and coronal reconstructions were generated. Images stored on PACS. All CT scanners at this facility use dose modulation, iterative reconstruction, and/or weight based d osing when appropriate to reduce radiation dose to as low as reasonably achievable (ALARA). [facility]: Dose Right [facility]: CareDose [facility]: Dose Right [facility]: Teradose 4D [facility]: Smart Drop Messages RADIATION DOSE: CT Rad equipment meets quality standard of care and radiation dose reduction techniq ues were employed. CTDIvol: 53.2 mGy. DLP: 1097 mGy-cm. mGy. LIMITATIONS: None. FINDINGS: VENTRICLES: Normal size and contour. CEREBRUM: No masses. No hemorrhage. No midline shift. No evidence for acute infarction. Normal gra y/white matter differentiation. No areas of low density in the white matter. CEREBELLUM: No masses. No hemorrhage. No alteration of density. No evidence for acute infarction. EXTRAAXIAL SPACES: No fluid collections. No masses. ORBITS AND GLOBE: No intra- or extraconal masses. Normal contour of globe without masses. CALVARIUM: No fracture. PARANASAL SINUSES: No fluid or mucosal thickening. SOFT TISSUES: No mass or hematoma. OTHER: No other significant finding. IMPRESSION: NORMAL BRAIN CT WITHOUT CONTRAST. EVIDENCE OF ACUTE STROKE: NO. COMMENT: Quality ID # [id number]: Final reports with documentation of one or more dose reduction techniques (e.g., Automated exposure control, adjustment of the mA and/or kV according to patient size, use of iterative reconstruction technique) TECHNICAL DOCUMENTATION: JOB ID: [id number] [employer]- All Rights Reserved Reading location - IP/workstation name: [email or web address]
[2019-11-08 17:49] LABS: ABSOLUTE EOSINOPHILS # (AUTO) 0.1 10^3/uL (0.0-0.6); ABSOLUTE LYMPHOCYTES (AUTO) 1.6 10^3/uL (0.5-4.7); ABSOLUTE MONOCYTES (AUTO) 0.6 10^3/uL (0.1-1.4); ABSOLUTE NEUT (AUTO) 3.5 10^3/uL (1.7-8.2); BASOPHILS % (AUTO) 0.7 % (0-2); EOSINOPHILS % (AUTO) 2.1 % (0-6); HEMATOCRIT 49.4 % (37.9-51.0); HEMOGLOBIN 16.3 g/dL (13.5-17.0); LYMPHOCYTES % (AUTO) 26.5 % (13-45); MEAN CORPUSCULAR HEMOGLOBIN 29.6 pg (27.0-33.4); MEAN CORPUSCULAR HGB CONC 33.1 g/dL (32.0-36.0); MEAN CORPUSCULAR VOLUME 90 fl (80-97); MONOCYTES % (AUTO) 10.6 % (3-13); PLATELET COUNT 187 10^3/uL (150-450); RED BLOOD COUNT 5.51 10^6/uL (4.35-5.55); RED CELL DISTRIBUTION WIDTH 14.6 % (11.5-14.0); SEGMENTED NEUTROPHILS % (AUTO) 60.1 % (42-78); TOTAL CELLS COUNTED % (AUTO) 100 %; WHITE BLOOD COUNT 5.9 10^3/uL (4.0-10.5)
[2019-11-08 18:09] LABS: ALBUMIN 4.5 g/dL (3.5-5.0); ALKALINE PHOSPHATASE 95 U/L (38-126); ANION GAP 10 (5-19); ASPARTATE AMINO TRANSFERASE 29 U/L (17-59); BILIRUBIN,DIRECT 0.3 mg/dL (0.0-0.4); BILIRUBIN,TOTAL 0.4 mg/dL (0.2-1.3); BLOOD UREA NITROGEN 11 mg/dL (7-20); CALCIUM 9.6 mg/dL (8.4-10.2); CARBON DIOXIDE 29 mmol/L (22-30); CHLORIDE 106 mmol/L (98-107); CREATINE KINASE 460 U/L (55-170); GLUCOSE 113 mg/dL (75-110); POTASSIUM 4.2 mmol/L (3.6-5.0); TOTAL PROTEIN 7.8 g/dL (6.3-8.2)
[2019-11-08 20:05] VITALS: BP 168/108
[2019-11-08] MEDS ORDERED: TRAMADOL HCL 50 MG TABLET PO ONE (20:18)
--- NOTE | 2019-11-08 20:24 | ER Document Report ---
ED General - General Chief Complaint: Headache, Worst Ever Stated Complaint: HEAD PAIN,LIGHTHEADED,NECK PAIN Time Seen by Provider: 11/08/19 16:34 Primary Care Provider: KIMBERLYN CARRASQUILLO FNP [NO LOCAL MD] - Follow up as needed Mode of Arrival: Wheelchair TRAVEL OUTSIDE OF THE [place] IN LAST 30 DAYS: No - HPI Notes: Mr. Sutherland is a 54-year-old male presenting with a chief complaint of headache. This gentleman has been seeing his family physician for cervical radiculopathy and chronic neck pain for several months and recently had an MRI showing mult ilevel cervical disc disease. He is been referred to a emr specialist and has an appointment later this month. He takes Tylenol as needed for his discomfort. His discomfort is been more severe than usual today and is radiated up over the top of her scalp. Aggravated by turning his head to either side or by using his nondominant left upper extremity. He says the pain got bad enough at one point about 3 this afternoon that he became sweaty. There was no nausea or vomiting no visual changes no difficulty speaking and no acute sensory or motor symptoms. Patient has not taken anything for his headache today. He says he has a minimal headache now perhaps 3/10. Patient has a history of hypertension. Has been recording his blood pressures at home and has been averaging about 168/110. He says he is fully compliant with prescribed medication. Patient denies any head trauma. Patient is on Eliquis which he is taking long-term for history of paroxysmal atrial fibrillation. Patient is presently on metoprolol 25 mg daily and diltiazem 120 mg sustained release daily both for blood pressure. Patient takes 1 aspirin tablet daily. Patient has a history of hyperlipidemia and has been on a statin for this. No known allergies. - Related Data Allergies/Adverse Reactions: No Known Allergies Allergy (Verified 11/08/19 16:35) Past Medical History - General Information source: Patient, Relative - Social History Smoking Status: Never Smoker Chew tobacco use (# tins/day): No Frequency of alcohol use: Rare Drug Abuse: None Family History: Hypertension Patient has suicidal ideation: No Patient has homicidal ideation: No - Past Medical History Cardiac Medical History: Reports: Hx Atrial Fibrillation, Hx Coronary Artery Disease, Hx Heart Attack, Hx Hypercholesterolemia, Hx Hypertension Denies: Hx DVT, Hx Pulmonary Embolism Pulmonary Medical History: Denies: Hx Asthma, Hx COPD Neurological Medical History: Denies: Hx Seizures Endocrine Medical History: Denies: Hx Diabetes Mellitus Type 1, Hx Diabetes Mellitus Type 2, Hx Hyperthyroidism, Hx Hypothyroidism Renal/ Medical History: Denies: Hx Peritoneal Dialysis GI Medical History: Denies: Hx Cirrhosis, Hx Hepatitis Musculoskeletal Medical History: Denies Hx Arthritis, Denies Hx Gout Skin Medical History: Denies Hx Eczema, Denies Hx Psoriasis Infectious Medical History: Denies: Hx Hepatitis Past Surgical History: Reports: Hx Appendectomy, Hx Cardiac Catheterization - 2005, Hx Orthopedic Surgery - Grade 3 ankle sprain on the right with chronic debility.. Denies: Hx Coronary Stent - Immunizations Hx Diphtheria, Pertussis, Tetanus Vaccination: Yes Review of Systems - Review of Systems Notes: Constitutional: Negative for fever. HENT: Negative for sore throat. Eyes: Negative for visual changes. Cardiovascular: Negative for chest pain. Respiratory: Negative for shortness of breath. Gastrointestinal: Negative for abdominal pain, vomiting or diarrhea. Genitourinary: Negative for dysuria. Musculoskeletal: As per HPI. Skin: Negative for rash. Neurological: As per HPI. 10 point ROS negative except as marked above and in HPI. Physical Exam - Vital signs Vitals: Temp Pulse Resp BP Pulse Ox 98.2 F 88 20 176/100 H 99 11/08/19 16:20 11/08/19 16:20 11/08/19 16:20 11/08/19 16:20 11/08/19 16:20 - Notes Notes: GENERAL: Well-developed well-nourished appearing in no acute distress. SKIN: Good turgor no rashes. HEAD: Normocephalic atraumatic. Patient has tenderness over the posterior neck and scalp. That reproduces his pain exactly. EYES: PERRLA. EOMI. Conjunctivae and sclerae clear. EARS: CANALS AND TMS CLEAR. NOSE: CLEAR. MOUTH: Moist mucosa. Good dentition. No stridor or edema. No drooling. NECK: Supple. Diffuse musculoskeletal tenderness and muscular spasm posteriorly no masses or thyromegaly. No adenopathy. Carotids 2+ without bruits. No JVD. BACK: Symmetrical without tenderness. CHEST: Respirations unlabored. Breath sounds clear and symmetrical. HEART: Regular rhythm. No murmur gallop or rub. ABDOMEN: Soft nontender without masses, organomegaly or rebound. Bowel sounds normally active. No bruits. GENITALIA: Deferred. EXTREMITIES: No edema. No calf tenderness. Cap refill less than 1.5 seconds. Dorsalis pedis and posterior tibial pulses 3+ and symmetrical. NEUROLOGICAL: GCS 15. Alert and oriented x3. Normal gait. Fluent speech. Cranial nerves II through XII intact. Sensorimotor and cerebellar normal. Normal tone. PSYCHIATRIC: Appropriate affect. Blood pressure rechecked by me at bedside is 160/110. Course - Re-evaluation Re-evalutation: 11/08/19 20:26 I think this man is having a muscular tension headache. His neurologic exam here is normal. His pain is reproducible with palpation of the posterior neck and scalp area. His head CT is negative. He is taking Eliquis and aspirin but certainly has no evidence of bleeding at this point. His blood pressure needs more aggressive treatment and I discussed this with him and his at length. They fully understand my findings and recommendations and he agrees to follow-up with his primary care physician within the next 72 hours for repeat of his blood pressure. I am going to increase his metoprolol to 25 mg twice daily and continue other medications as before. I will give him some tramadol here and a prescription for same for use at home as needed. - Vital Signs Vital signs: Temp Pulse Resp BP Pulse Ox 98.2 F 88 16 168/108 H 99 11/08/19 16:20 11/08/19 16:20 11/08/19 20:01 11/08/19 20:01 11/08/19 20:01 - Laboratory Result Diagrams: 11/08/19 17:13 11/08/19 17:13 Laboratory results interpreted by me: 11/08/19 11/08/19 17:13 17:13 RDW 14.6 H Glucose 113 H Creatine Kinase 460 H - Diagnostic Test Radiology reviewed: Reports reviewed Radiology results interpreted by me: 11/08/19 20:[address] per radiology. Discharge - Discharge Clinical Impression: Headache HTN (hypertension) Qualifiers: Hypertension type: essential hypertension Qualified Code(s): I10 - Essential (primary) hypertension Condition: Stable Disposition: HOME, SELF-CARE Instructions: Headache ([facility]) Additional Instructions: Increase metoprolol to 25 mg twice a day. Stay on your other medications as before. Return here as needed for new or worsening symptoms: Pain that is worsening or unimproved Uncontrolled vomiting High fever or shaking chills Overall worsening See your doctor for reevaluation within the next 2 to 3 days. Prescriptions: Tramadol HCl [Ultram 50 mg Tablet] 50 mg PO Q4HP PRN #12 tab PRN Reason: Forms: Elevated Blood Pressure Referrals: KIMBERLYN CARRASQUILLO FNP [NO LOCAL MD] - Follow up as needed
--- NOTE | 2019-11-08 23:28 | EKG REPORT ---
SEVERITY:- ABNORMAL ECG - SINUS RHYTHM LEFT ANTERIOR FASCICULAR BLOCK CONSIDER RIGHT VENTRICULAR HYPERTROPHY LEFT VENTRICULAR HYPERTROPHY : Confirmed by: Inocencia Aguirre MD 08-Nov-2019 23:28:00
== END 2019-11-08 20:39 | disposition home or self-care (01) ==
LOC: ER 15:57
DX: R51 Headache (principal); I10 Essential (primary) hypertension; R61 Generalized hyperhidrosis; M54.12 Radiculopathy, cervical region; M62.838 Other muscle spasm; I25.10 Atherosclerotic heart disease of native coronary artery without angina pectoris; E78.5 Hyperlipidemia, unspecified; I48.0 Paroxysmal atrial fibrillation; Z79.01 Long term (current) use of anticoagulants; Z79.899 Other long term (current) drug therapy; Z79.82 Long term (current) use of aspirin
CPT/HCPCS: 36415; 70450; 80053; 82550; 84484; 85025; 93005; 93010; 99284

== ENCOUNTER 2020-05-16 00:23 | Emergency (ER) | payer BC, OTHER ==
--- NOTE | 2020-05-16 00:49 | ER Document Report ---
ED Medical Screen (RME) - General Chief Complaint: Blood Pressure Problem Stated Complaint: HIGH BLOOD PRESSURE/HEADACHE Time Seen by Provider: 05/16/20 00:47 Primary Care Provider: MONI BECKER DO [Primary Care Provider] - Follow up as needed Information source: Patient Notes: Patient presents complaining of headache and elevated blood pressure. Patient states he checked his pressure at home this evening it was 215/126. Patient states that he was having some right-sided neck pain that would shoot up into his head. Patient states headache pain was more severe but has since eased off. Patient denies any nausea vomiting. Patient denies any chest discomfort or shortness of breath. Patient states he does have a history of hypertension, AL and A. fib. Patient states that he had to have his medicines adjusted because Remedios interacted with 1 of his blood pressure medications. Patient states he takes Cozaar and Toprol, and has been compliant with his medicines. I have greeted and performed a rapid initial assessment of this patient. A comprehensive ED assessment and evaluation of the patient, analysis of test results and completion of the medical decision making process will be conducted by additional ED providers. TRAVEL OUTSIDE OF THE [place] IN LAST 30 DAYS: No - Related Data Allergies/Adverse Reactions: No Known Allergies Allergy (Verified 11/08/19 16:35) Past Medical History - Past Medical History Cardiac Medical History: Reports: Hx Atrial Fibrillation, Hx Coronary Artery Disease, Hx Heart Attack, Hx Hypercholesterolemia, Hx Hypertension Denies: Hx DVT, Hx Pulmonary Embolism Pulmonary Medical History: Denies: Hx Asthma, Hx COPD Neurological Medical History: Denies: Hx Seizures Endocrine Medical History: Denies: Hx Diabetes Mellitus Type 1, Hx Diabetes Mellitus Type 2, Hx Hyperthyroidism, Hx Hypothyroidism Renal/ Medical History: Denies: Hx Peritoneal Dialysis GI Medical History: Denies: Hx Cirrhosis, Hx Hepatitis Musculoskeltal Medical History: Denies Hx Arthritis, Denies Hx Gout Skin Medical History: Denies Hx Eczema, Denies Hx Psoriasis Infectious Medical History: Denies: Hx Hepatitis Past Surgical History: Reports: Hx Appendectomy, Hx Cardiac Catheterization - 2004, Hx Orthopedic Surgery - Grade 3 ankle sprain on the right with chronic debility.. Denies: Hx Coronary Stent - Immunizations Hx Diphtheria, Pertussis, Tetanus Vaccination: Yes Physical Exam - Vital signs Vitals: Temp Pulse Resp BP Pulse Ox 99.1 F 76 16 191/113 H 99 07/24/20 00:34 05/16/20 00:34 05/16/20 00:34 05/16/20 00:34 05/16/20 00:34 - Neurological Neuro grossly intact: Yes Cognition: Normal Casimiro Coma Scale Eye Opening: Spontaneous [place] Coma Scale Verbal: Oriented Casimiro Coma Scale Motor: Obeys Commands Casimiro Coma Scale Total: 15 Speech: Normal Course - Vital Signs Vital signs: Temp Pulse Resp BP Pulse Ox 99.1 F 76 16 191/113 H 99 05/16/20 00:34 05/16/20 00:34 05/16/20 00:34 05/16/20 00:34 05/16/20 00:34 Doctor's Discharge - Discharge Referrals: MONI BECKER DO [Primary Care Provider] - Follow up as needed
--- NOTE | 2020-05-16 02:39 | RADIOLOGY REPORT (SQ) ---
EXAM DESCRIPTION: CT HEAD WITHOUT IV CONTRAST COMPLETED DATE/TME: 05/16/2020 00:47 CLINICAL HISTORY: 55 years, Male, LEE, HTN COMPARISON: 11/08/2019 CT TECHNIQUE: 216 Images stored on PACS. All CT scanners at this facility use dose modulation, iterative reconstruction, and/or weight based dosing when appropriate to reduce radiation dose to as low as reasonably achievable (ALARA). [facility]: Dose Right [facility]: CareDose [facility]: Dose Right [facility]: Teradose 4D [facility]: [employer] LIMITATIONS: None. FINDINGS: The globes are intact. The paranasal sinuses and mastoid air cells are well aerated. No displaced or depressed skull fracture. No intra or extra-axial hemorrhage. CT is limited for evaluation of acute infarct. No CT evidence for large or territorial acute infarct. No mass. No midline shift IMPRESSION: Negative exam TECHNICAL DOCUMENTATION: Quality ID # [id number]: Final reports with documentation of one or more dose reduction techniques (e.g., Automated exposure control, adjustment of the mA and/or kV according to patient size, use of iterative reconstruction technique) copyright 2011 [employer]- All Rights Reserved
[2020-05-16 02:44] LABS: ABSOLUTE EOSINOPHILS # (AUTO) 0.1 10^3/uL (0.0-0.6); ABSOLUTE LYMPHOCYTES (AUTO) 1.7 10^3/uL (0.5-4.7); ABSOLUTE MONOCYTES (AUTO) 0.7 10^3/uL (0.1-1.4); ABSOLUTE NEUT (AUTO) 2.8 10^3/uL (1.7-8.2); BASOPHILS % (AUTO) 0.5 % (0-2); EOSINOPHILS % (AUTO) 2.3 % (0-6); HEMOGLOBIN 16.8 g/dL (13.5-17.0); LYMPHOCYTES % (AUTO) 31.4 % (13-45); MEAN CORPUSCULAR HEMOGLOBIN 29.9 pg (27.0-33.4); MEAN CORPUSCULAR HGB CONC 33.5 g/dL (32.0-36.0); MEAN CORPUSCULAR VOLUME 89 fl (80-97); PLATELET COUNT 173 10^3/uL (150-450); RED BLOOD COUNT 5.61 10^6/uL (4.35-5.55); RED CELL DISTRIBUTION WIDTH 14.9 % (11.5-14.0); SEGMENTED NEUTROPHILS % (AUTO) 52.8 % (42-78); TOTAL CELLS COUNTED % (AUTO) 100 %; WHITE BLOOD COUNT 5.3 10^3/uL (4.0-10.5)
[2020-05-16 03:02] LABS: ANION GAP 8 (5-19); BLOOD UREA NITROGEN 11 mg/dL (7-20); CALCIUM 9.7 mg/dL (8.4-10.2); CARBON DIOXIDE 27 mmol/L (22-30); CHLORIDE 106 mmol/L (98-107); GLUCOSE 108 mg/dL (75-110); POTASSIUM 4.4 mmol/L (3.6-5.0)
[2020-05-16 06:05] VITALS: BP 184/121
[2020-05-16] MEDS ORDERED: HYDRALAZINE HCL INJ/PF 20 MG/1 ML SDV IV ONE (07:07)
--- NOTE | 2020-05-16 08:25 | ER Document Report ---
Entered by RYANNE HAMLIN SCRIBE 05/16/20 0738 Acting as scribe for:CECILIA YOUNG MD ED General - General Chief Complaint: High Blood Pressure Stated Complaint: HIGH BLOOD PRESSURE/HEADACHE Time Seen by Provider: 05/16/20 00:47 Primary Care Provider: MONI BECKER DO [Primary Care Provider] - Follow up as needed Information source: Patient Notes: This 55 year old male patient with a history of HTN, Afib, and a OK in 2004, presents to the emergency department today with high blood pressure. Patient states last night around midnight his blood pressure was high when he checked. Patient reports a headache and denies vision changes. Patient states he has had blood pressure problems the past year and last saw his PCP for this x3-4 months ago. Patient states he is on medication for his cholesterol, Cozaar for HTN, and Eliquis for Afib. TRAVEL OUTSIDE OF THE [place] IN LAST 30 DAYS: No - Related Data Allergies/Adverse Reactions: No Known Allergies Allergy (Verified 11/08/19 16:35) Home Medications: cozaar, chol med, baby asa, eliquis, metoprolol Past Medical History - General Information source: Patient - Social History Smoking Status: Never Smoker Cigarette use (# per day): No Family History: Hypertension Patient has homicidal ideation: No - Past Medical History Cardiac Medical History: Reports: Hx Atrial Fibrillation, Hx Coronary Artery Disease, Hx Heart Attack, Hx Hypercholesterolemia, Hx Hypertension Past Surgical History: Reports: Hx Appendectomy, Hx Cardiac Catheterization - 2004, Hx Orthopedic Surgery - Grade 3 ankle sprain on the right with chronic debility. - Immunizations Hx Diphtheria, Pertussis, Tetanus Vaccination: Yes Review of Systems - Review of Systems Constitutional: No symptoms reported EENT: See HPI, Other - no vision changes Cardiovascular: See HPI Respiratory: No symptoms reported Gastrointestinal: No symptoms reported Genitourinary: No symptoms reported Male Genitourinary: No symptoms reported Musculoskeletal: No symptoms reported Skin: No symptoms reported Hematologic/Lymphatic: No symptoms reported Neurological/Psychological: See HPI, Headaches -: Yes All other systems reviewed and negative Physical Exam - Vital signs Vitals: Temp Pulse Resp BP Pulse Ox 99.1 F 76 16 191/113 H 99 05/16/20 00:34 05/16/20 00:34 05/16/20 00:34 05/16/20 00:34 05/16/20 00:34 - General General appearance: Appears well, Alert - HEENT Head: Normocephalic, Atraumatic Eyes: Normal Pupils: PERRL - Respiratory Respiratory status: No respiratory distress Chest status: Nontender Breath sounds: Normal Chest palpation: Normal - Cardiovascular Rhythm: Regular Heart sounds: Normal auscultation Murmur: No - Abdominal Inspection: Normal Distension: No distension Bowel sounds: Normal Tenderness: Nontender - Extremities General upper extremity: Normal inspection. No: Edema General lower extremity: Normal inspection. No: Edema - Neurological Neuro grossly intact: Yes Cognition: Normal Orientation: AAOx4 Speech: Normal - Psychological Associated symptoms: Normal affect, Normal mood - Skin Skin Temperature: Warm Skin Moisture: Dry Skin Color: Normal Course - Re-evaluation Re-evalutation: 05/16/20 08:22 Patient resting comfortably not showing any signs of distress blood pressure currently is 148/98 - Vital Signs Vital signs: Temp Pulse Resp BP Pulse Ox 97.9 F 60 16 184/121 H 99 05/16/20 05:14 05/16/20 05:14 05/16/20 06:03 05/16/20 06:03 05/16/20 06:03 05/16/20 08:23 Vital signs improved blood pressure 148/98. Patient not having any headache nonfocal exam. - Laboratory Result Diagrams: 05/16/20 02:30 05/16/20 02:30 Laboratory results interpreted by me: 05/16/20 02:30 RBC 5.61 H RDW 14.9 H 05/16/20 08:24 Laboratories within normal limits. - Diagnostic Test Radiology reviewed: Image reviewed, Reports reviewed Radiology results interpreted by me: 05/16/20 08:24 CT scan of head did not show any acute process. No evidence for stroke or bleed or tumor. Discharge - Discharge Clinical Impression: HTN (hypertension) Condition: Stable Disposition: HOME, SELF-CARE Instructions: High Blood Pressure, Requiring Treatment ([facility]) Forms: Elevated Blood Pressure Referrals: MONI BECKER DO [Primary Care Provider] - Follow up as needed I personally performed the services described in the documentation, reviewed and edited the documentation which was dictated to the scribe in my presence, and it accurately records my words and actions.
== END 2020-05-16 08:53 | disposition home or self-care (01) ==
LOC: ER 00:23
DX: I10 Essential (primary) hypertension (principal); R51 Headache; I48.91 Unspecified atrial fibrillation; I25.2 Old myocardial infarction; I25.10 Atherosclerotic heart disease of native coronary artery without angina pectoris; Z79.899 Other long term (current) drug therapy; Z79.01 Long term (current) use of anticoagulants; Z79.82 Long term (current) use of aspirin
CPT/HCPCS: 99284; 96374; 36415; 85025; 80048; 70450; J0360